=== PATIENT | male | born 1940 | race Caucasian/White ===

== ENCOUNTER 2022-06-10 08:27 | Emergency (ER) | payer MEDICARE, SELFPAY ==
[2022-06-10 08:31] VITALS: BP 146/89; PULSE 55; RESP 20; TEMP 36.3; O2SAT 99; BMI 26.9
--- NOTE | 2022-06-10 12:24 | ED.GENADULT ---
HPI - General Adult General Date Seen: 06/10/22 Chief complaint: Neck Injury/Pain Stated complaint: Pinched nerve left side neck Time Seen by Provider: 06/10/22 08:34 Source: patient and family History of Present Illness HPI narrative: Patient is an 82-year-old male recently moved here from [facility] who presents for evaluation of some pain in his left neck and trapezius area. He says this started about a month ago and initially was mild although it has become more severe over the past few days to week or so. He denies any previous injury. He does not have pain that radiates into the arm, does not have any complaints of numbness or weakness in the arm. He denies any symptoms of fevers, unusual weight loss, night sweats etcetera. He says that he saw somebody in [place] about a week ago when the pain started to get worse and was prescribed meloxicam as well as cycle than aspirin. He has been taking the meloxicam once a day and the cycle benazepril in 3 times a day but he says they do not help. He says if he sits still he does not have any pain at all but when he turns his head or tries to tilt his head to the left, he has a very sharp pain which he now rates as severe. It is largely localized to a focal area in the trapezius. It is not keeping him up at night. He does say that he has been nervous about driving because he is worried about having to turn his head quickly. He says next week he is supposed to drive 60 miles to [address] [place] [facility] and he just does not think he is going to be able to do it because of this pain. He is planning to switch his care to [place], and would be interested in setting up an appointment with someone in primary care. Related Data Home Medications Medication Instructions Recorded Confirmed cyclobenzaprine 5 mg tablet 5 mg PO TID PRN 06/10/22 06/10/22 meloxicam 7.5 mg tablet 7.5 mg PO DAILY 06/10/22 06/10/22 Previous Rx's Medication Instructions Recorded prednisone 20 mg tablet 20 mg PO DAILY #18 tabs 06/10/22 Allergies Allergy/AdvReac Type Severity Reaction Status Date / Time No Known Drug Allergies Allergy Verified 06/10/22 08:37 Review of Systems Status of ROS: Reports: 10 or more systems reviewed and unremarkable except as noted in History and below [facility] Social History Smoking Status: Never smoker Do you use any of these nicotine containing products: None Second hand tobacco smoke exposure: No How often do you have a drink containing alcohol: 4 or more times a week How many standard drinks containing alcohol do you have on a typical day: 1 or 2 How often do you have six or more drinks on one occasion: Never AUDIT-C Alcohol total score: 4 Non-prescribed substance use: denies use Exam Narrative: Exam Narrative: Vital signs as noted above. In general, an alert, well-appearing patient. Is comfortable. Head: Normocephalic, atraumatic. Eyes: Pupils are equal reactive. Extraocular movements are full. Conjunctivae are normal. ENT: Mucous membranes are moist. Throat is normal. Neck: No adenopathy or anterior tenderness. He has diffuse tenderness over the midline from C3 down to C7. He has tenderness over the paracervical muscles on the left, and has tenderness throughout the trapezius muscle on the left. I do not really feel a focal area of spasm. He has limited rotatory motion to the right and the left secondary to pain. Spurling's is positive, but not for radiculopathy, only for reproduced pain in the trapezius area. Heart: Regular rate and rhythm. No murmur or rub. Lungs: Clear bilaterally. No increased work of breathing, crackles or wheezes. Extremities: Well perfused. No upper extremity edema. Pulses intact. Neurologic: Patient is alert and oriented to person and place. Speech is fluent. Face is symmetric. Moves all extremities equally. Strength is 5 5 in bilateral upper extremities. Affect: Normal. Skin: Warm and dry. Well perfused. Const: Vital Signs, click to edit/add: Vital Signs - 24 hr 06/10/22 08:31 Temperature 97.4 F L Pulse Rate [Left P ulse Oximeter] 55 L Respiratory Rate 20 Blood Pressure [Le ft Upper Arm] 146/89 H Pulse Oximetry 99 Oxygen Delivery Me thod Room Air Documenting provider has reviewed patient's vital signs: yes Course Course Hospital Course: Discussed with patient that symptoms may be muscular, could be related to disc herniation or other compressive force on an exiting nerve root. The duration of symptoms I do think this is a possibility, however in the absence of any red flags or abnormal neurologic exam, I do not think imaging is needed today. I have suggested that we try mount a prednisone taper. We discussed using a stronger pain medication but he is comfortable avoiding that for now. I would like him to continue on the meloxicam. We discussed that this combination with prednisone can sometimes cause stomach upset and he should watch for that. He says he has never had problems along those lines in the past. We set up an appointment with primary care for him. Imaging can be arranged at that time if indicated. If he has acute worsening return to the emergency department at any time. Vital Signs Vital signs: Initial Vital Signs Temperature 97.4 F L 06/10/22 08:31 Temperature Source Temporal Artery Scan 06/10/22 08:31 Pulse Rate 55 L 06/10/22 08:31 Respiratory Rate 20 06/10/22 08:31 Blood Pressure 146/89 H 06/10/22 08:31 Blood Pressure Mean 108 06/10/22 08:31 Blood Pressure Position Sitting 06/10/22 08:31 Pulse Oximetry 99 06/10/22 08:31 Oxygen Delivery Method 06/10/22 08:31 Vital Signs Temperature 97.4 F L 06/10/22 08:31 Pulse Rate 55 L 06/10/22 08:31 Respiratory Rate 20 06/10/22 08:31 Blood Pressure 146/89 H 06/10/22 08:31 Pulse Oximetry 99 06/10/22 08:31 Oxygen Delivery Method 06/10/22 08:31 Temperature 97.4 F L 06/10/22 08:31 Pulse Rate 55 L 06/10/22 08:31 Respiratory Rate 20 06/10/22 08:31 Blood Pressure 146/89 H 06/10/22 08:31 Pulse Oximetry 99 06/10/22 08:31 Oxygen Delivery Method 06/10/22 08:31 Discharge Plan Discharge Clinical Impression: Left torticollis Patient Disposition: Home, Self-Care Condition: Stable Instructions: Spasmodic Torticollis (ED) Additional Instructions: Follow up appointment is scheduled with Dr. Manning on 06/16 with a 2:15pm arrival time. Please bring your insurance cards and photo ID. If you have any questions or need to reschedule, please call [phone]. [address] [address] Until then, continue current medications. Consider imaging the form of MRI to rule out disc herniation or other nerve compression is etiology for your symptoms. If you develop acute worsening such as weakness or numbness in your left arm, severe headache, or other neurologic changes, return to the ER for more urgent evaluation. Prednisone as prescribed Prescriptions: New prednisone 20 mg tablet 20 mg PO DAILY Qty: 18 0RF Rx Instructions: Take 3 tabs daily for 3 days, then 2 tabs daily for 3 days, then 1 tab daily for 3 days No Action meloxicam 7.5 mg tablet 7.5 mg PO DAILY cyclobenzaprine 5 mg tablet 5 mg PO TID PRN Stand Alone Forms: [employer] Info Instructions
== END 2022-06-10 10:13 | disposition home or self-care (01) ==
LOC: ED 09:25
PROVIDERS: Emergency Provider Emergency Medicine
DX: M43.6 Torticollis (principal)
CPT/HCPCS: 99282; 99284

== ENCOUNTER 2022-08-19 13:45 | Outpatient (RCR) | payer MEDICARE, SELFPAY ==
--- NOTE | 2022-06-22 10:21 | PT.OPEX ---
PT [place] Outpatient Eval PT [facility] Outpatient Eval Start: 06/21/22 17:40 Freq: Status: Active Protocol: Document 06/21/22 17:41 EVA (Rec: 06/21/22 17:42 EVA [id number]) E-signed By Waldemar Palacios DPT, MS Physical Therapy Outpatient Evaluation Insurance Information Recert Due Date 09/19/22 Insurance Name Medicare B,Blue Cross/Blue Shield Medical Diagnosis Other muscle spasm; Cervical paraspinal muscle spasm Treating Diagnosis B CS pain, decreased B CS flexibility and ROM, CS hypomobility, CS hypertonicity with TPs, and deep CS flex and periscap weakness. Subjective Subjective Pt is an 82 y.o. male who presents to PT with c/o acute onsets of B (L>R) CS pain of insidious origin in late April 2022. Describes sxs as debilitating sharp and aching pain his L CS musculature extending laterally to the proximal shoulder. 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 Believes significant time on his laptop also contributed to sxs. Denies previous episodes of neck pain with gradual increase in stiffness over the past decade. Driving has been very difficult due to limited CS rot and will need to improve before his upcoming position. Denies significant PMH. AGGR factors: looking down, turning head, driving, sleeping, extended computer use. ALLEV factors: warm shower, advil. Pain Comments -02/23 Current Work Status Production Supervisor Occupation Temp [employer] for non-profit Precautions Therapy Limitations/Systems Review Not Limited Objective Functional Test Performed & Score NDI: 75% Assessment Assessment/Impression B (R>L) CS musculature is very tight with hypertonicity with TPs with decreased flexibility and ROM. Lower CS hypomobility limiting CS rot AROM. Emphasized importance of AROM, gradually increasing flexibility. He responded very well to MT, stretching and strengthening exercises with decreased CS pain and improved AROM following today?s session. He will benefit from continued skilled therapy to address these limitations. Primary Functional Limitations Looking down, turning head, driving, sleeping, extended computer use. Plan of Care Rehabilitation Potential Excellent Physical Therapy Goals Short-term goals to be completed in 4 weeks: 1. Pt will display >50% improvement in I sitting posture for >1 consecutive PT visit 2. Pt will report improved quality of sleep waking <2x per night due to neck pain for >2 consecutive nights. Long-term goals to be completed in 10 weeks: 1. Pt will be independent and compliant with HEP 2. Pt will display improved B low and mid trap strength >4/5 to put dishes away in overhead cabinets 3. Pt will be able to tolerate sitting >30 minutes with pain levels <2/10 to improve tolerance to driving. 4. Pt will display improved neck rotation bilateral to WFL to look over shoulder to check blind spots while driving. Coordination/Communication With Referral Source Treatment Plan/Direct Interventions Joint Mobilization,Manual Therapy,Therapeutic Exercises Frequency/Duration 1-2x per week for least 6-10 visits, decreasing visit frequency as able. Patient Will Be Discharged From Therapy Completion of LTG(s),Skills Plateau,Independent w/HEP, Independently Progressing Evaluation Billing Untimed Code Treatment Minutes 25 Complexity Moderate Certification Information Initial Certification Date 06/21/22 Ending Certification Date 09/19/22 Provider Signature Shows Agreement With POC & Medical Necessity Physician Signature & Date Requested Please Sign/Date Here Physician Comment/Change : Physician NPI Number #
== END 2023-02-02 23:59 | disposition home or self-care (01) ==
PROVIDERS: Visit Provider Family Medicine
DX: M62.838 Other muscle spasm (principal); Z51.89 Encounter for other specified aftercare
CPT/HCPCS: 97110; 97140; 97162

== ENCOUNTER 2023-03-31 11:07 | Emergency (ER) | payer MEDICARE, SELFPAY ==
[2023-03-31 11:21] VITALS: BP 128/75; PULSE 55; RESP 16; TEMP 36.1; O2SAT 98; BMI 26.9
--- NOTE | 2023-03-31 12:26 | ED.GENADULT ---
HPI - General Adult General Chief complaint: Neck Injury/Pain Stated complaint: Tingling in neck/R shoulder Time Seen by Provider: 03/31/23 12:17 History of Present Illness HPI narrative: Patient reports tingling sensation from his right neck down to right shoulder. Patient first noted this several days ago and reports that it comes and goes. Does also bring up post infection neurological pain from shingles in right face. 82-year-old man presenting to the emergency department with concern of tingling in his left neck/shoulder area that seems to be coming and going somewhat over the last few days. There has been no trauma. it is not pain so much. Is not having any weakness. Has not been noting any rash. 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 Related Data Home Medications Medication Instructions Recorded Confirmed tamsulosin 0.4 mg capsule applicator PO 06/16/22 01/24/23 prednisolone acetate 1 % eye 1 drp ophthalmic (eye) 3XD 10/10/22 01/24/23 drops,suspension Previous Rx's Medication Instructions Recorded fluorouracil 5 % topical cream 1 applic topical .ud #40 grams 01/24/23 atenolol 25 mg tablet 25 mg PO QDAY #90 tabs 03/27/23 atorvastatin 40 mg tablet 40 mg PO QDAY #90 tabs 03/27/23 lisinopril 10 mg tablet 10 mg PO QDAY #90 tabs 03/27/23 omeprazole 20 mg capsule,delayed 20 mg PO QDAY #90 caps 03/27/23 release valacyclovir 1 gram tablet 1,000 mg PO TID 7 days #21 tabs 03/31/23 (Valtrex) Allergies Allergy/AdvReac Type Severity Reaction Status Date / Time No Known Drug Allergies Allergy Verified 11/25/22 14:37 Review of Systems Status of ROS: Reports: 6 or more systems reviewed and unremarkable except as noted in History and below [facility] Medical History Actinic keratosis ?L57.0 - Actinic keratosis (ICD-10) History of skin cancer ?Z85.828 - Personal history of other malignant neoplasm of skin (ICD-10) History of colon polyps ?Z86.010 - Personal history of colonic polyps (ICD-10) CVA (cerebral vascular accident) (2010) ?I63.9 - Cerebral infarction, unspecified (ICD-10) Surgical History History of esophagogastroduodenoscopy (EGD) ?Z98.890 - Other specified postprocedural states (ICD-10) History of dilation of urethra (10/12/15) ?Z98.890 - Other specified postprocedural states (ICD-10) History of phacoemulsification of cataract of both eyes with intraocular lens implantation (2006) ?Z98.41 - Cataract extraction status, right eye (ICD-10) ?Z98.42 - Cataract extraction status, left eye (ICD-10) ?Z96.1 - Presence of intraocular lens (ICD-10) Family History Father Esophageal cancer, Onset Age: 57 Mother Colon cancer, Onset Age: 54 Sister Myocardial infarction Kidney disease Bladder cancer COPD (chronic obstructive pulmonary disease) Social History Smoking Status: Never smoker Do you use any of these nicotine containing products: None Second hand tobacco smoke exposure: No How often do you have a drink containing alcohol: 4 or more times a week How many standard drinks containing alcohol do you have on a typical day: 1 or 2 How often do you have six or more drinks on one occasion: Never AUDIT-C Alcohol total score: 4 Non-prescribed substance use: denies use Little interest or pleasure in doing things: not at all Feeling down, depressed, or hopeless: not at all service: No Exam Narrative: Exam Narrative: Pleasant. NAD. Well-perfused peripherally. Neck with good range of motion. Nontender. Good strength in the upper extremities. No midline neck or back pain. Spurling's is negative. I do not appreciate swelling redness or any blistering occurring in the area. No muscular abnormality. Has good range of motion at his shoulders without pain. Const: Vital Signs, click to edit/add: Vital Signs - 24 hr 03/31/23 11:21 Temperature 97.0 F L Pulse Rate [Pulse Oximeter] 55 L Respiratory Rate 16 Blood Pressure [Ri ght Upper Arm] 128/75 Pulse Oximetry 98 Oxygen Delivery Me thod Room Air Documenting provider has reviewed patient's vital signs: yes Course Vital Signs Vital signs: Initial Vital Signs Temperature 97.0 F L 03/31/23 11:21 Temperature Source Temporal Artery Scan 03/31/23 11:21 Pulse Rate 55 L 03/31/23 11:21 Respiratory Rate 16 03/31/23 11:21 Blood Pressure 128/75 03/31/23 11:21 Blood Pressure Mean 92 03/31/23 11:21 Pulse Oximetry 98 03/31/23 11:21 Oxygen Delivery Method Room Air 03/31/23 11:21 Vital Signs Temperature 97.0 F L 03/31/23 11:21 Pulse Rate 55 L 03/31/23 11:21 Respiratory Rate 16 03/31/23 11:21 Blood Pressure 128/75 03/31/23 11:21 Pulse Oximetry 98 03/31/23 11:21 Oxygen Delivery Method Room Air 03/31/23 11:21 Temperature 97.0 F L 03/31/23 11:21 Pulse Rate 55 L 03/31/23 11:21 Respiratory Rate 16 03/31/23 11:21 Blood Pressure 128/75 03/31/23 11:21 Pulse Oximetry 98 03/31/23 11:21 Oxygen Delivery Method Room Air 03/31/23 11:21 Medical Decision Making MDM Narrative Medical decision making narrative: I do not see anything unusual at this point. May represent some underlying muscle discomfort/imbalance. He is not really describing fasciculations. Does not seem to have any joint issue. I also would have concerns about an evolving zoster outbreak. I think it would be a good idea to be cautious here. I do not think this represents any ischemic event in the spine or brain. See patient discharge plan Discharge Plan Discharge Clinical Impression: Tingling of skin Patient Disposition: Home, Self-Care Condition: Stable Additional Instructions: I would actually, as I said, have more concerned that this tingling might represent a recurrence of your shingles. You may wait a day but if this tingling is still present tomorrow, begin the Valcyclovir that I am prescribing. If you subsequently do have blisters or rash erupting, be re-evaluated to see whether there are any other treatments would be indicated at that time. Of course also return to the emergency department if you have new onset weakness, severe headache, loss of vision or sensation. Prescriptions: New valacyclovir [Valtrex] 1 gram tablet 1,000 mg PO TID 7 Days Qty: 21 0RF No Action tamsulosin 0.4 mg capsule PO prednisolone acetate 1 % drops,suspension 1 drp ophthalmic (eye) 3XD fluorouracil 5 % cream 1 applic topical .ud Qty: 40 0RF Rx Instructions: Apply topically to affected area one time every week. omeprazole 20 mg capsule,delayed release(DR/EC) 20 mg PO QDAY Qty: 90 2RF atenolol 25 mg tablet 25 mg PO QDAY Qty: 90 2RF atorvastatin 40 mg tablet 40 mg PO QDAY Qty: 90 2RF lisinopril 10 mg tablet 10 mg PO QDAY Qty: 90 2RF Patient Comments: TAKE ONE TABLET BY MOUTH DAILY Follow Up/Referrals: Jemal Early MD [Primary Care Provider] - Stand Alone Forms: [employer] Info Instructions
== END 2023-03-31 13:09 | disposition home or self-care (01) ==
LOC: ED 13:00
PROVIDERS: Emergency Provider Family Medicine; PCP Family Medicine
DX: R20.2 Paresthesia of skin (principal)
CPT/HCPCS: 99283; 99284

== ENCOUNTER 2024-04-02 12:23 | Outpatient (CLI) | payer MEDICARE, BC, SELFPAY ==
--- OUTSIDE RECORDS SUMMARY | 2024-04-02 12:28 | XMS_ITS | Encounter Summary ---
Author Organization [facility] Address [address] [place] [address] Care Team Providers Care Scouring Train Operator Name Role Phone Celsa Mitchell D.O., M.S. Primary Care Provide r Encounter Details Date Type Department Care Team (Late st Contact Info) Description 03/04/2024 Orders Only Department of Orthopedic Surgery in [address] [phone] Kristyn Bailey, DFreddyP.MFreddy [address] [place] [phone] Mass Soft Tissue (Primary Dx) Social History Tobacco Use Types Packs/Day Years Used Date Smoking Tobacco: Never Passive Smoke Exposure: Past Smokeless Tobacco: Never Alcohol Use Standard Drinks/Week Comments Yes 1 (1 standard drink = 0.6 oz pur e alcohol) daily Humiliation, Afraid, Rape, and Kick questionnair e Answer Date Recorded Fear of Current or Ex-Partner No Emotionally Abused No 01/29/2019 Physically Abused No 01/29/2019 Sexually Abused No 01/29/2019 Social Connection and Isolation Panel [NHANES] A nswer Date Recorded Frequency of Communication with Friends and Fami ly Not on file 03/10/2020 How often do you get togethe r with friends or relatives? Three times a week 03/10/2020 Attends Je[employer] Witness Services Not on file 03/10 Active Member of Clubs or Organizations Not on f ile 03/10/2020 Attends Club or Organization Meetings Not on jenifer e 03/10/2020 Marital Status Not on file 03/10/2020 AUDIT-C Answer Date Recorded Frequency of Alcohol Consumption 4 or more times a week 01/29/2019 Average Number of Drinks 1 or 2 019 Frequency of Binge Drinking Never 01/14 Overall Financial Resource Strain (CARDIA) Answe r Date Recorded Difficulty of Paying Living Expenses Not hard at all 01/29/2019 PHQ-2 Answer Date Recorded PHQ-2 Score 0 [facility] - Occupational Stress Questionnaire Answer Date Recorded Feeling of Stress Only a little 01/29/2019 Exercise Vital Sign Answer Date Recorde d On average, how many days pe r week do you engage in moderate to strenuous exercise (like a brisk walk)? 4 days Minutes of Exercise per Session Not on file 03/10/2020 Hunger Vital Sign Answer Date Recorded Worried About Running Out of Food in the Last Ye ar Never true 01/29/2019 Ran Out of Food in the Last Year Never true 01/29/2019 PRAPARE - Transportation Answer Date Re corded Lack of Transportation (Medical) No 01/29/2019 Lack of Transportation (Non-Medical) No 01/29/2019 Depression Answer Date Recor ded PHQ-9 Total Score (max 27) 0 03/25 Nutrition Answer Date Recorded Nutrition: EVOO Fat Source Unknown 03/11 Nutrition: Servings of Fruits/Vegetables per Day Not on file 03/11/2023 Dental Answer Date Recorded Dental: Regular Dentist Unknown 03/11/20 23 Education Answer Date Recorded What is the highest level of school you have completed or the highest degree you have received? Master's degree (e.g., MA, MS, Bianca, MEd, DIET AIDE, STEFANI) 01/28/2019 Sex and Gender Information Value Date Recorded Sex Assigned at Male 09/05/2017 10:23 AM DANCE CHOREOGRAPHER Gender Identity Male 09/05/2017 10:23 AM DANCE CHOREOGRAPHER Sexual Orientation Straight 09/05/2017 10 :23 AM DANCE CHOREOGRAPHER documented as of this encounter Plan of Treatment Upcoming Encounters Date Type Department Care Team (Late st Contact Info) Description 07/01/2024 11:15 AM DANCE CHOREOGRAPHER Office Visit Department of Orthopedic Surgery in [address] [phone] Kristyn Bailey D.P.M. [address] [place] [phone] Discharge Disposition: Home or Self Care Scheduled Orders Name Type Priority Associated Diagnoses Orde r Schedule Cytology Fine Needle Aspiration (including core biopsies) Pathology and Cytology Routine Mass Soft Tissue Expected: 03/13/2024, Expires: 06/13/2025 documented as of this encounter Goals Goal Patient Goal Type Associated Problems Recent Progress Patient-Stated? Author Weight (lb) > X Weight No Elaine Ball, R.N. Note: Patient states he would like to lose 20 lbs. He does go to gym 3 x week for 60 minutes. documented as of this encounter Visit Diagnoses Diagnosis Mass Soft Tissue- Primary documented in this encounter Additional Health Concerns Assessment Noted Time PHQ-9 Depression Total Score: 0 03/25/20 21 12:59 PM CDT documented as of this encounter Care Teams Scouring Train Operator Relationship Specialty Start Date End Date Celsa Mitchell D.O., M.S. [address] [place] [phone] PCP - General 05/23/22 documented as of this encounter
--- OUTSIDE RECORDS SUMMARY | 2024-04-02 12:28 | XMS_ITS | Encounter Summary ---
Author Organization [facility] Address [address] [place] [address] Care Team Providers Care Pencil Inspector Name Role Phone Celsa Mitchell D.O., M.S. Primary Care Provide r Encounter Details Date Type Department Care Team (Late st Contact Info) Description 03/13/2024 Orders Only Department of Orthopedic Surgery in [place], [place] [address] [place] [phone] Kristyn Bailey, DFreddyP.MFreddy [address] [place] [phone] Social History Tobacco Use Types Packs/Day Years [...] relatives? Three times a week 03/10/2020 Attends [employer] Not on file 03/10 Active Member [...] Answer Date Recorded PHQ-2 Score 0 05/12/2022 [facility] - Occupational Stress Questionnaire Answer Date [...] Master's degree (e.g., MA, MS, Bianca, MEd, CORPORATE SAFETY MANAGER, STEFANI) 01/28/2019 Sex and Gender Information Value Date Recorded Sex Assigned at Male 09/05/2017 10:23 AM COMPETENCY EVALUATED NURSE AIDE Gender Identity Male 09/05/2017 10:23 AM COMPETENCY EVALUATED NURSE AIDE Sexual Orientation Straight 09/05/2017 10 :23 AM COMPETENCY EVALUATED NURSE AIDE documented as of this encounter Plan of Treatment Upcoming Encounters Date Type Department Care Team (Late st Contact Info) Description 07/01/2024 11:15 AM COMPETENCY EVALUATED NURSE AIDE Office Visit Department of Orthopedic Surgery in [address] [phone] Kristyn Bailey D.P.M. [address] [place] [phone] Discharge Disposition: Home or Self Care documented as of this encounter Goals Goal Patient Goal Type Associated Problems Recent Progress Patient-Stated? Author Weight (lb) > X Weight No Elaine Ball R.N. Note: Patient states he would like to lose 20 lbs. He does go to gym 3 x week for 60 minutes. documented as of this encounter Visit Diagnoses Not on filedocumented in this encounter Additional Health Concerns Assessment Noted Time PHQ-9 Depression Total Score: 0 03/25/20 21 12:59 PM CDT documented as of this encounter Care Teams Pencil Inspector Relationship Specialty Start Date End Date Celsa Mitchell D.O., M.S. [address] [place] [phone] PCP - General 05/23/22 documented as of this encounter
--- OUTSIDE RECORDS SUMMARY | 2024-04-02 12:28 | XMS_ITS | Encounter Summary ---
Author Organization [facility] Address [address] [place] [address] Care Team Providers Care Iron Carrier Name Role Phone Celsa Mitchell D.O. M.S. Primary Care Provide r Reason for Referral * Outpatient (Routine) - Closed Specialty Diagnoses / Procedures Referred By Contac t Referred To Contact Diagnoses Pain Foot Left Procedures DX Foot Left 3+ Views Kristyn Bailey D.P.M. [address] [place] [phone] [facility] Region Referral ID Status Reason Start Date Expiration Date Visits Re quested Visits Authorized [id number] Closed 02/12/2024 02/11/2025 1 1 Reason for Visit * Outpatient (Routine) - Closed Specialty Diagnoses / Procedures Referred By Contac t Referred To Contact Diagnoses Pain Foot Left Procedures DX Foot Left 3+ Views Kristyn Bailey D.P.M. [address] [place] [address] [facility] Region Referral ID Status Reason Start Date Expiration Date Visits Re quested Visits Authorized [id number] Closed 02/12/2024 02/11/2025 1 1 Encounter Details Date Type Department Care Team (Latest Contact Info) Description 03/01/2024 10:46 AM CDT - 03/01/2024 11:59 PM CDT Hospital Encounter Department of Radiology in [place] [address] [place] [phone] Kristyn Bailey D.P.MFreddy [address] [place] [phone] Pain Foot Left Discharge Disposition: Home or Self Care Social History Tobacco Use Types Packs/Day Years [...] relatives? Three times a week 03/10/2020 Attends [employer] Not on file 03/10 Active Member [...] Answer Date Recorded PHQ-2 Score 0 05/12/2022 [facility] [place] [facility] - Occupational Stress Questionnaire Answer Date Recorded [...] Date Recorded Dental: Regular Dentist Unknown 03/11/20 Education Answer Date Recorded What is the highest level of school you have completed or the highest degree you have received? Master's degree (e.g., MA, MS, Bianca, MEd, BAND SAWING MACHINE OPERATOR, STEFANI) 01/28/2019 Sex and Gender Information Value Date Recorded Sex Assigned at Male 09/05/2017 10:23 AM SPLITTER TENDER Gender Identity Male 09/05/2017 10:23 AM SPLITTER TENDER Sexual Orientation Straight 09/05/2017 10 :23 AM SPLITTER TENDER documented as of this encounter Medications at Time of Discharge Medication Sig Dispensed Refills Start Date End Date aspirin 81 mg chewable tablet Chew 81 mg daily. atenoloL (TENORMIN) 25 mg tabletIndications:Hyper tension And Chronic Kidney Disease Stage 3 Take 1 tablet (25 mg total) by mouth daily. 90 tablet 3 02/23/2023 atorvastatin (LIPITOR) 40 mg tabletIndications:Hyper lipidemia Take 1 tablet (40 mg total) by mouth daily. 90 tablet 3 02/23/2023 fluorouraciL (EFUDEX) 5 % creamIndications:Kerato sis Actinic Apply to actinic keratoses on forehead and scalp twice a day for 2-3 weeks as tolerated. 40 g 1 03/23/2021 lisinopriL (PRINIVIL,ZESTRIL) 10 mg tabletIndications:Hyper tension And Chronic Kidney Disease Stage 3 Take 1 tablet (10 mg total) by mouth daily. 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 180 capsule 3 02/23/2023 polymyxin B-trimethoprim (Polytrim) 10,000 unit- 1 mg/mL ophthalmic solution Administer 1 drop into the right eye 4 (four) times a day. 02/08/2024 prednisoLONE acetate (PRED FORTE) 1 % ophthalmic suspension Administer 1 drop into both eyes 2 (two) times a day. 12/16/2022 tamsulosin (FLOMAX) 0.4 mg 24 hr capsuleIndications:Cong gn Prostatic Hyperplasia Without Obstruction Take 1 capsule (0.4 mg total) by mouth daily. 90 capsule 3 02/23/2023 vitamins A,C,S-edco-zjwctu (for_PRESERVISION AREDS) 7,160 Units-113 mg-100 Units per tablet Take 1 tablet by mouth daily. documented as of this encounter Plan of Treatment Upcoming Encounters Date Type Department Care Team (Late st Contact Info) Description 07/01/2024 11:15 AM SPLITTER TENDER Office Visit Department of Orthopedic Surgery in [address] [phone] Kristyn Bailey D.P.M. [address] [place] [phone] Discharge Disposition: Home or Self Care documented as of this encounter Goals Goal Patient Goal Type Associated Problems Recent Progress Patient-Stated? Author Weight (lb) > X Weight No Elaine Ball, RFreddyN. Note: Patient states he would like to lose 20 lbs. He does go to gym 3 x week for 60 minutes. documented as of this encounter Procedures Procedure Name Priority Date/Time Associated Diagnosis Comments DX FOOT LEFT 3+ VIEWS RAD - Routine (most inpatients and all outpatients) 03/01/2024 11:03 AM CDT Pain Foot Left documented in this encounter Results * DX Foot Left 3+ Views (03/01/2024 11:03 AM CDT) Anatomical Region Laterality Modality Lower Extremity, Foot, Muscu loskeletal RST LOS, Musculoskeletal ARZ LOS, Muskuloskeletal FLA LOS Left Digit al Radiography Impressions 03/01/2024 11:14 AM CDT No fracture or dislocation. 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 There are also moderate degenerative changes of the first metatarsophalangeal joint. Plantar calcaneal enthesophyte. Narrative 03/01/2024 11:14 AM CDT EXAM: DX FOOT LEFT 3+ VIEWS Procedure Note Romero Alfaro M.D. - 03/01/2024 EXAM: DX FOOT LEFT 3+ VIEWS IMPRESSION: No fracture or dislocation. Moderate degenerative change of the left firsttarsometatarsal joint with adjacent soft tissue swelling. There are alsomoderate degenerative changes of the first metatarsophalangeal joint.Plantar calcaneal enthesophyte. Kristyn Bailey D.P.M. [facility]NO[facility] IMAG[facility] PROCEDURES documented in this encounter Visit Diagnoses Diagnosis Pain Foot Left documented in this encounter Additional Health Concerns Assessment Noted Time PHQ-9 Depression Total Score: 0 03/25/20 21 12:59 PM CDT documented as of this encounter Care Teams Iron Carrier Relationship Specialty Start Date End Date Celsa Mitchell D.O., M.S. [address] [place] [phone] PCP - General 05/23/22 documented as of this encounter
--- OUTSIDE RECORDS SUMMARY | 2024-04-02 12:28 | XMS_ITS | Referral Summary ---
Author Organization [facility] Address [address] [place] [address] Care Team Providers Care Shirt Bander Name Role Phone Celsa Mitchell D.O. M.S. Primary Care Provide r Source Comments Patient records contain information from all sites at [facility]. For routine questions regarding patient records, call [phone] during business hours, M-F 8:00 AM - 5:00 PM Central Time. Record requests for emergency care only can be directed to [phone] at any time.[facility] Encounters Date Type Department Care Team Description 04/01/2024 9:15 AM CDT Office Visit Department of Orthopedic Surgery in [address] [phone] Kristyn Bailey D.P.MFreddy Onychomycosis; Pain Toe Right; Pain Toe Left Discharge Disposition: Home or Self Care 03/13/2024 Orders Only Department of Orthopedic Surgery in [place], [place] [address] [phone] Kristyn Bailey D.PFreddyMFreddy 03/13/2024 Orders Only Department of Orthopedic Surgery in [place], [place] [address] [address] Kristyn Bailey D.P.MFreddy 03/04/2024 Orders Only Department of Orthopedic Surgery in [address] [phone] Kristyn Bailey D.PMaren Mass Soft Tissue (Primary Dx) 03/01/2024 10:46 AM CDT - 03/01/2024 11:59 PM CDT Hospital Encounter Department of Radiology in [address] [address] Kristyn Bailey D.PMaren Pain Foot Left Discharge Disposition: Home or Self Care 03/01/2024 11:15 AM CDT Office Visit Department of Orthopedic Surgery in [address] [address] Kristyn Bailey D.PMaren Mass Soft Tissue (Primary Dx); Cyst Ganglion; Pain Foot Left Discharge Disposition: Home or Self Care 02/12/2024 Clinical Communication Department of Orthopedic Surgery in [address] [phone] Kristyn Bailey D.PMaren 01/23/2024 Orders Only [facility] Celsa Mitchell D.O., M.S. Hyperlipidemia; Screening Examination Diabetes Mellitus from Last 3 Months Allergies No known active allergies Medications Medication Sig Dispensed Refills Start Date End Date Status vitamins A,C,D-iyea-hjroox (for_PRESERVISION AREDS) 7,160 Units-113 mg-100 Units per tablet Take 1 tablet by mouth daily. Active aspirin 81 mg chewable tablet Chew 81 mg daily. Active fluorouraciL (EFUDEX) 5 % creamIndications:Ker atosis Actinic Apply to actinic keratoses on forehead and scalp twice a day for 2-3 weeks as tolerated. 40 g 1 03/23/2021 Active fluticasone propionate (FLONASE) 50 mcg/actuation nasal spray Administer 2 sprays into each nostril 2 (two) times a day for 14 days. 16 g 11/05/2021 Active cyclobenzaprine (FLEXERIL) 5 mg tablet Take 1 tablet (5 mg total) by mouth 3 (three) times a day as needed for muscle spasms. 90 tablet 06/02/2022 Active meloxicam (MOBIC) 7.5 mg tablet Take 1 tablet (7.5 mg total) by mouth daily. 60 tablet 06/02/2022 Active prednisoLONE acetate (PRED FORTE) 1 % ophthalmic suspension Administer 1 drop into both eyes 2 (two) times a day. 12/16/2022 Active atenoloL (TENORMIN) 25 mg tabletIndications:Hy pertension And Chronic Kidney Disease Stage 3 Take 1 tablet (25 mg total) by mouth daily. 90 tablet 3 02/23/2023 Active atorvastatin (LIPITOR) 40 mg tabletIndications:Hy perlipidemia Take 1 tablet (40 mg total) by mouth daily. 90 tablet 3 02/23/2023 Active lisinopriL (PRINIVIL,ZESTRIL) 10 mg tabletIndications:Hy pertension And Chronic Kidney Disease Stage 3 Take 1 tablet (10 mg total) by mouth daily. 90 tablet 3 02/23/2023 Active omeprazole (PriLOSEC) [address] capsuleIndications:H ernia Diaphragmatic Without Obstruction Take 1 capsule (20 mg total) by mouth 2 (two) times a day. 180 capsule 3 02/23/2023 Active tamsulosin (FLOMAX) 0.4 mg 24 hr capsuleIndications:B enign Prostatic Hyperplasia Without Obstruction Take 1 capsule (0.4 mg total) by mouth daily. 90 capsule 3 02/23/2023 Active polymyxin B-trimethoprim (Polytrim) 10,000 unit- 1 mg/mL ophthalmic solution Administer 1 drop into the right eye 4 (four) times a day. 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 Assessment & Plan (02/23/2023 3:55 PM CDT): Will hold off on treatment for now. Stenosis Carotid Artery Bilateral 02/13/2019 Benign Prostatic Hyperplasia Without Obstruction 02/01/2019 Overview (02/23/2023): Currently managed with Flomax 0.4 mg daily Consider Yearly PSA Stroke Cerebrovascular Accident Personal History 02/01/2019 Overview (02/23/2023): Left lacuna infarct found on MRI imaging August 06, 2010 On aspirin 81 mg daily Myopia Bilateral 07/03/2017 Presbyopia 07/03/2017 Intraocular Lens Implant Status Post 07/03/2017 Overview (02/23/2023): Left eye completed 03/27/2007. 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 Last EGD 2020 with recommendations for no follow up. 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 Recommended follow-up 3 years. Discussed in 2021 and patient elected to hold off on further colonoscopies. Cancer Gastrointestinal Tract Family History Hernia Diaphragmatic Without Obstruction 014 Overview (02/23/2023): Asymptomatic. Hypertensive Chronic Kidney Disease With Stage 1 Through Stage 4 Chronic Kidney Disease, Or Unspecified Chronic Kidney Disease 06/28/2011 Overview (02/23/2023): Patient's blood pressure goal less than 140/90 At goal Yearly BMP Lisinopril 10 mg daily Atenolol 25 mg daily Hyperlipidemia 06/28/2011 Overview (02/23/2023): On Lipitor 40 mg daily. Yearly Lipid Loss Hearing Sensorineural 08/05/2010 Overview (02/23/2023): Patient reports 60% hearing loss on the right side. Left ear hearing grossly intact Resolved Problems Problem Noted Date Diagnosed Date Resolved Date Discomfort Chest 02/01/2019 03/10/2020 Overview (02/01/2019): New onset complaint February 01, 2019 Stenosis Carotid Artery Right 02/01/2019 05/12/2022 Overview (03/25/2021): New finding February 01, 2019 Ultrasound completed February 07, 2019 FINDINGS: ?? RIGHT: Mild to moderate multifocal echogenic plaque ?? LEFT: Mild multifocal mixed echogenicity plaque ?? VELOCITIES (cm/sec) Right CCA *psv: 66 cm/s Right ICA psv: 207 cm/s Right ICA edv: 207 cm/s Right ECA psv: 274 cm/s Right ICA/CCA: 3.1 ?? Left CCA *psv: 77 cm/s Left ICA psv: 62 cm/s Left ICA edv: 20 cm/s Left ECA psv: 106 cm/s Left ICA/CCA: 0.8 *mid/distal (non-diseased) ?? Measurement of a carotid stenosis, if present, is based on velocity parameters that compare the residual internal carotid luminal diameter with that of the normal distal ICA in accordance with [place] Symptomatic Carotid Endarterectomy Trial (NASCET). ?? IMPRESSION: Right: Moderate, 50-69% ICA stenosis Left: Mild, 0-49%, ICA stenosis. Aspirin 81 mg daily Lipitor 40 mg daily Polyp Colon Hyperplastic 02/01/2019 Overview (02/01/2019): Hyperplastic polyps found on last colonoscopy last performed on 08/27/2018. Recommended follow-up 3 years. Will rediscuss at 3 year kari as patient will be 81 years old. 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 Patient currently uses Flomax 0.4 mg, continue medication Combined Forms Age Related Cataract Right Eye 07/03/20 16 02/01/2019 Overview (07/03/2017): Added automatically from request for surgery [id number] Reflux Esophageal 06/28/2011 02/01/2019 Immunizations Name Administration Dates Next Due HepA Adult 05/21/2008,04/17/2006 Influenza high dose QV(65 ye ars or older) (PF) 05/12/2022,06/25/2021,04/21/2020 Influenza, Unspecified 06/26/2014,05/10/2011,11/2007 PCV13 02/01/2018 PPSV23 05/21/2008 Td (Adult), adsorbed 04/17/2006 Tdap 02/01/2018 influenza trivalent high dose (HD)(PF) 9,08/24/2017 Social History Tobacco Use Types Packs/Day Years Used Date Smoking Tobacco: Never Passive Smoke Exposure: Past Smokeless Tobacco: Never Tobacco Cessation:Counseling Given: Not Answered Alcohol Use Standard Drinks/Week Comments Yes 1 [...] relatives? Three times a week 03/10/2020 Attends Sikh Services Not on file 03/10 Active Member [...] Answer Date Recorded PHQ-2 Score 0 05/12/2022 [facility] [place] of Occupat ional Health - Occupational Stress [...] Master's degree (e.g., MA, MS, Bianca, MEd, EAR PULL MACHINE OPERATOR, STEFANI) 01/28/2019 Sex and Gender Information Value Date Recorded Sex Assigned at Male 09/05/2017 10:23 AM OUTSIDE PHYSICAL DAMAGE APPRAISER Gender Identity Male 09/05/2017 10:23 AM OUTSIDE PHYSICAL DAMAGE APPRAISER Sexual Orientation Straight 09/05/2017 10 :23 AM OUTSIDE PHYSICAL DAMAGE APPRAISER Last Filed Vital Signs Vital Sign Reading Time Taken Comments Blood Pressure 132/79 02/23/2023 10:00 AM CDT Pulse 52 02/23/2023 10:00 AM CDT Temperature 35.9 ??C (96.6 ??F) 02/23/2023 9:56 AM CD T Respiratory Rate 16 11/06/2021 3:06 PM CDT Oxygen Saturation 97% 11/06/2021 3:06 PM CDT Inhaled Oxygen Concentration - - Weight 84.7 kg (186 lb 11.7 oz) 02/23/2023 9:56 AM CDT Height 174 cm (5' 8.5) 05/12/2022 9:24 AM CDT Body Mass Index 27.98 05/12/2022 9:24 AM CDT Plan of Treatment Upcoming Encounters Date Type Department Care Team (Late st Contact Info) Description 07/01/2024 11:15 AM OUTSIDE PHYSICAL DAMAGE APPRAISER Office Visit Department of Orthopedic Surgery in [address] [place] [address] Kristyn Bailey D.PFreddyM. [address] [phone] Discharge Disposition: Home or Self Care Goals Goal Patient Goal Type Associated Problems Recent Progress Patient-Stated? Author Weight (lb) > X Weight No Elaine Ball, RTawnya Note: Patient states he would like to lose 20 lbs. He does go to gym 3 x week for 60 minutes. Medical Devices Implanted Type Area Itinerant Teacher Assistant Device Identifier Shelf Expiration Date Model / Serial / Lot Ocular Lens-03/27/2007 Implanted:03/17 (Quantity not on file) Ocular Lens Eye Aspheric Uv Absorbing Iol Implanted:Qty: 1 on 08/29/2017 by Daniel Soler M.D., Ph.D. at [facility] Ocular Lens [employer] [id number] 03/16/2022 [id number] / [id number] / [id number] Procedures Procedure Name Priority Date/Time Associated Diagnosis Comments CYTOLOGY NON-INDUSTRIAL TECHNOLOGY TEACHER Routine 03/01/2024 11:4 1 AM CDT CELL COUNT AND DIFFERENTIAL, BF Routine 03/01/2024 11:41 AM CDT Cyst Ganglion DX FOOT LEFT 3+ VIEWS RAD - Routine (most inpatients and all outpatients) 03/01/2024 11:03 AM CDT Pain Foot Left LIPID PANEL, S Routine 05/11/2022 9:28 AM CDT Hyperlipidemia BASIC METABOLIC PANEL, S/P Routine 05/11/2022 9:28 AM CDT Hypertension And Chronic Kidney Disease Stage 3 (HCC) UPPER GI ENDOSCOPY 04/06/2021 7: 41 AM CDT COLONOSCOPY 08/27/2018 7:28 AM OUTSIDE PHYSICAL DAMAGE APPRAISER from Last 3 Months or Most Recently Relevant to Health Maintenance Results * Cytology Non-INDUSTRIAL TECHNOLOGY TEACHER (03/01/2024 11:41 AM CDT) 03/06/2024 11:22 AM CDT ECLR Report electronically signed by Nesha Otoole M.D. I verify that I have examined all relevant slides/materi als for the specimen(s) and rendered or confirmed the diagnosis. 03/06/2024 11:22 AM CDT ECLR Gross Description Received 1.5 cc of blood tinged fluid without fixative. QNS for cell block 03/06/2024 11:22 AM CDT ECLR Source A. NOS, foot, left, fluid 03/06/2024 11:22 AM CDT ECLR Interpretation A. NOS, foot, left, fluid (cytospin): Negative for malignancy. ??Paucicellul ar myxoid material and histiocytes, suggestive of ganglion cyst. 03/06/2024 11:22 AM CDT ECLR 03/01/2024 11:4 1 AM CDT 03/05/2024 12:50 PM CDT Kristyn Bailey D.P.M. LAB SURG PATH ORDERABLES [facility] [address] [place] [id number], [facility] ECLR [address] [place] [phone] * Cell Count and Differential, Body Fluid (03/01/2024 11:41 AM CDT) Fluid Type Synovial 03/01/2024 7:47 PM CDT [facility] Gross Appearance CloudySerous 03/01/2024 7:47 PM CDT [facility] Total Nucleated Cells 1827 /mcL 03/02/2024 5:27 AM CDT [facility] Comment: REVISED RESULTS ----REFERENCE VALUE---- Synovial: <150 Peritoneal: <500 Pleural: <500 Pericardial: <500 ----PREVIOUSLY REPORTED ---- 172, Flagged as: N/A (Reported 03/01/2024 19:47) Neutrophils 1 % 03/01/2024 10:22 PM CDT [facility] Comment: ----REFERENCE VALUE---- Synovial: <25% Peritoneal: <25% Pleural: <25% Pericardial: <25% Lymphocytes 5 Synovial: <75% % 03/01/2024 10:22 PM CDT [facility] Monocytes/Macro phages 92 Synovial: <70% % 03/01/2024 10:22 PM CDT [facility] Other Cells 2 % 03/01/2024 10:22 PM CDT [facility] Reviewed by [id number] 03/01/2024 10:27 PM CDT [facility] Fluid (Synovial Fluid, Not Otherwise Specified) 03/01/2024 11:41 AM CDT 03/01/2024 6:59 PM CDT Kristyn Bailey D.P.M. LAB BODY FLUID S AND STOOLS ORDERABLES [facility] [address] [place] [address], [facility] RDWG [facility] [place] [address] [place] [address] * DX Foot Left 3+ Views (03/01/2024 [...] metatarsophalangeal joint.Plantar calcaneal enthesophyte. Kristyn Bailey D.P.M. IMG DIAGNOSTIC IMAGING PROCEDURES * Lipid Panel (05/11/2022 9:28 AM CDT) Triglycerides 95 mg/dL 05/11/2022 11:19 AM CDT [facility] Comment: ----REFERENCE VALUE---- Normal: <150 mg/dL Borderline High: 150-199 mg/dL High: 200-499 mg/dL Very High: > or =500 mg/dL Cholesterol, Total 146 mg/dL 2021 11:19 AM CDT [facility] Comment: ----REFERENCE VALUE---- Desirable: < 200 mg/dL Borderline High: 200 - 239 mg/dL High: > or = 240 mg/dL Cholesterol, LDL, Calculated 75 mg/dL 05/11/2022 11:19 AM CDT [facility] Comment: ----REFERENCE VALUE---- Desirable: <100 mg/dL Above Desirable: 100-129 mg/dL Borderline High: 130-159 mg/dL High: 160-189 mg/dL Very High: >=190 mg/dL ----ADDITIONAL INFORMATION---- LDL cholesterol calculated using the Henson/NIH equation. Cholesterol, HDL 53 >=40 mg/dL 05/11/20 11:19 AM CDT [facility] Cholesterol, Non-HDL, Calculated 93 mg/dL 05/11/2022 11:19 AM CDT [facility] Comment: ----REFERENCE VALUE---- Desirable: <130 mg/dL Above Desirable: 130-159 mg/dL Borderline High: 160-189 mg/dL High: 190-219 mg/dL Very High: > or =220 mg/dL Fasting (8 HR or more) No 05/11/2022 10:17 AM CDT [facility] Blood (Blood, Venous) 05/11/2022 9:28 AM CDT 05/11/2022 10:17 AM CDT Hilary Zeng APRN, C.N.P., D.N.P. LAB BL OOD ADD-ON [facility] [address] [place] [address], [facility] [address] [place] [address] * Basic Metabolic Panel (05/11/2022 9:28 AM CDT) Potassium, P 4.4 3.6 - 5.2 mmol/L 05/11/2022 11:19 AM CDT [facility] Sodium, P 143 135 - 145 mmol/L 05/11/2022 11:19 AM CDT [facility] Chloride, P 106 98 - 107 mmol/L 05/11/2022 11:19 AM CDT [facility] Bicarbonate, P 27 22 - 29 mmol/L 05/11/2022 11:19 AM CDT [facility] Anion Gap, P 10 7 - 15 05/11/2022 11:19 AM CDT [facility] BUN (Blood Urea Nitrogen), P 19 8 - 24 mg/dL 05/11/2022 11:19 AM CDT [facility] Creatinine 1.19 0.74 - 1.35 mg/dL 05/11/2022 11:19 AM CDT [facility] Estimated GFR (eGFR) 61 >=60 mL/min/BSA 05/11/2022 11:19 AM CDT [facility] Comment: Estimated GFR calculated using the 2020 CKD_EPI creatinine equation. Calcium, Total, P 9.1 8.8 - 10.2 mg/dL 05/11/2022 11:19 AM CDT [facility] Glucose, P 86 70 - 140 mg/dL 05/11/2022 11:19 AM CDT [facility] Blood (Blood, Venous) 05/11/2022 9:28 AM CDT 05/11/2022 10:17 AM CDT Hilary Zeng APRN, C.N.P., D.N.P. LAB BL OOD ADD-ON [facility] [address] [place] [address], [facility] [address] [place] [address] * UPPER GI ENDOSCOPY (04/06/2021 7:41 AM CDT) Narrative Procedure Note Tru Nieto M.D. - 04/06/2021 7:41 AM CDT [facility] Patient Name: Elver Novak Procedure Date: 04/06/2021 7:41 AM Date of : 1940 Age: 80 Gender: Male Procedure: Upper GI endoscopy Providers: Tru Nieto MD, Hilary Zeng (OrderingProvider) Referring Provider: Hilary Zeng Pre-op Diagnoses: Follow-up of Win's esophagus Post-op Diagnoses: - Normal examined duodenum. - Normal stomach. 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 Biopsied. Nodule included of cardia. - 2 cm hiatal hernia. - Tortuous esophagus. - The examination was otherwise normal. Recommendation: - Await pathology results. - Repeat upper endoscopy is not recommended. Findings: The examined duodenum was normal. The stomach was normal. The esophagus and gastroesophageal junction were examined with white light and narrow band imaging (NBI) from a forward view andretroflexed position. There were esophageal mucosal changes secondary toestablished short-segment Win's disease. These changes involved the mucosa at the upper extent of the gastric folds (38 cm from the incisors) extending to the Z-line (37 cm from the incisors). Two tongues of salmon-colored mucosa were present. The maximum longitudinal extentof these esophageal mucosal changes was 1 cm in length. Mucosa wasbiopsied with a cold forceps for histology in a targeted manner at intervalsof 1 cm at 37 cm from the incisors. One specimen bottle was sent to pathology. Biopsy of cardia included. A 2 cm hiatal hernia was present. The examined esophagus was mildly tortuous. The exam was otherwise without abnormality. Medicines: Monitored Anesthesia Care Estimated Blood Loss: Estimated blood loss: none. Complications: No immediate complications. Procedure Details: The patient was seen, evaluated, and history reviewed. Airway and heart and lung exams were performed and were satisfactory for plannedsedation care. The risks, benefits and alternatives for the procedure and sedation were discussed andinformed consent was obtained. A procedural pause was conducted in the presence of assisting personnelto verify the correct patient identity and procedureto be performed. Throughout the procedure, the patient's blood pressure, pulse, and oxygen saturations were monitored continuously. The Endoscope was introduced under direct vision through the mouth, and advanced to the secondpart of duodenum. The upper GI endoscopy wasaccomplished without difficulty. The patient tolerated the procedure well. Sedation: TONY Nieto MD 04/06/2021 8:22:28 AM This report has been signed electronically. Number of Addenda: 0 Note Initiated On: 04/06/2021 7:41 AM Hilary Ashanti Karri JI, C.N.P., D.N.P. GI PRO CEDURE ORDERABLES * COLONOSCOPY (08/27/2018 7:28 AM OUTSIDE PHYSICAL DAMAGE APPRAISER) Narrative Procedure Note Darryl Tesfaye M.D. - 08/27/2018 7:28 AM CST [facility] Patient Name: Elver Novak Procedure Date: 08/27/2018 7:28 AM Date of : 1940 Age: 78 Gender: Male Procedure: Colonoscopy Providers: Darryl Tesfaye MD, Darryl Tesfaye MD (OrderingProvider) Referring Provider: Darryl Tesfaye MD Pre-op Diagnoses: High risk colon cancer surveillance: Personal history of adenoma (10 mm or greater in size),High risk colon cancer surveillance: Personal historyof multiple (3 or more) adenomas Post-op Diagnoses: - Five 2 to 4 mm polyps in the rectum, in the distal sigmoid colon,in the descending colon and in the mid ascending colon, removed with acold biopsy forceps. Resected and retrieved. - The examined portion of the ileum was normal. - The distal rectum and anal verge are normal on retroflexion view. Recommendation: - Patient has a contact number available for emergencies. The signsand symptoms of potential delayed complications were discussed with the patient. Return to normal activities tomorrow. Written discharge instructions were provided to the patient. - Await pathology results. - Repeat colonoscopy date to be determined after pending pathology results are reviewed. - Return to referring physician as previously scheduled. - Resume previous diet. Findings: The perianal examination was normal. Five sessile polyps were found in the rectum, distal sigmoid colon, descending colon and mid ascending colon. The polyps were 2 to 4 mmin size. These polyps were removed with a cold biopsy forceps. Resection and retrieval were complete. The terminal ileum appeared normal. The retroflexed view of the distal rectum and anal verge was normaland showed no anal or rectal abnormalities. Medicines: Midazolam 4.5 mg IV, Fentanyl 100 micrograms IV Complications: No immediate complications. Procedure Details: The patient was seen, evaluated, and history reviewed. Airway and heart and lung exams were performed and were satisfactory for plannedsedation care. The risks, benefits and alternatives for the procedure and sedation were discussed andinformed consent was obtained. A procedural pause was conducted in the presence of assisting personnelto verify the correct patient identity and procedureto be performed. Throughout the procedure, the patient's blood pressure, pulse, and oxygen saturations were monitored continuously. The Colonoscope was introduced under directvision through the anus and advanced to the terminalileum. The colonoscopy was performed without difficulty. The patient tolerated the procedure well. The quality of the bowel preparation was excellent. Sedation: Moderate (conscious) sedation was administered by the endoscopy nurse and supervised by the endoscopist. The following parameters were monitored: oxygen saturation, heart rate, blood pressure, respiratory rate, EKG, adequacy of pulmonary ventilation, and response to care. Total physician intraservice time was 32 minutes. Darryl Tesfaye MD 08/27/2018 9:28:18 AM This report has been signed electronically. Number of Addenda: 0 Note Initiated On: 08/27/2018 7:28 AM Darryl Tesfaye M.D. GI PROCEDURE ORDERAB LES from Last 3 Months or Most Recently Relevant to Health Maintenance Advance Directives For more information, please contact: [phone] * Full Code (Latest Code Status on File) Date Activated Date Inactivated Comments 04/06/2021 8:17 AM 04/06/2021 11:24 AM Question Answer Comments Full Code: Discussed * Full Code Date Activated Date Inactivated Comments 08/29/2017 6:13 AM 08/29/2017 10:58 AM Question Answer Comments Full Code: Discussed Care Teams Shirt Bander Relationship Specialty Start Date End Date Celsa Mitchell D.O., M.S. [address] [phone] PCP - General 05/23/22
--- OUTSIDE RECORDS SUMMARY | 2024-04-02 12:28 | XMS_ITS ---
Author Organization [facility] Address [address] [place] [address] Care Team Providers Care Paper Sorter And Counter Name Role Phone Unavailable Unavailable Unavailable Surgery Details Not on file Complications Check Surgery Details section. Procedure Estimated Blood Loss Check Surgery Details section. Procedure Findings Check Surgery Details section. Procedure Specimens Taken Check Surgery Details section.
--- OUTSIDE RECORDS SUMMARY | 2024-04-02 12:28 | XMS_ITS | Encounter Summary ---
Author Organization [facility] Address [address] [place] [address] Care Team Providers Care Thermoforming Machine Operator Name Role Phone Celsa Mitchell D.O., M.S. Primary Care Provide r Encounter Details Date Type Department Care Team (Late st Contact Info) Description 03/13/2024 Orders Only Department of Orthopedic Surgery in [place], [place] [address] [place] [phone] Kristyn Bailey, DFreddyP.MFreddy [address] [place] [phone] Social History Tobacco Use Types Packs/Day Years [...] relatives? Three times a week 03/10/2020 Attends [employer] Services Not on file 03/10 Active Member [...] Answer Date Recorded PHQ-2 Score 0 05/12/2022 [facility] Occupat [facility] - Occupational Stress Questionnaire Answer Date [...] Master's degree (e.g., MA, MS, Bianca, MEd, WIRE CUTTER, STEFANI) 01/28/2019 Sex and Gender Information Value Date Recorded Sex Assigned at Male 09/05/2017 10:23 AM PIECER UP Gender Identity Male 09/05/2017 10:23 AM PIECER UP Sexual Orientation Straight 09/05/2017 10 :23 AM PIECER UP documented as of this encounter Plan of Treatment Upcoming Encounters Date Type Department Care Team (Late st Contact Info) Description 07/01/2024 11:15 AM PIECER UP Office Visit Department of Orthopedic Surgery in [address] [phone] Kristyn Bailey D.P.M. [address] [place] [phone] Discharge Disposition: Home or Self Care documented [...] documented as of this encounter Care Teams Thermoforming Machine Operator Relationship Specialty Start Date End Date Celsa Mitchell D.O., M.S. [address] [place] [phone] PCP - General 05/23/22 documented as of this encounter
--- OUTSIDE RECORDS SUMMARY | 2024-04-02 12:28 | XMS_ITS | Clinical Summary ---
Author Organization [facility] Address [address] [place] [address] Care Team Providers Care Information Technology Internship Name Role Phone Celsa Mitchell D.O. M.S. Primary Care Provide r Source Comments Patient records contain information from all sites at [facility]. For routine questions regarding patient records, call [phone] during business hours, M-F 8:00 AM - 5:00 PM Central Time. Record requests for emergency care only can be directed to [phone] at any time.[facility] Allergies No known active allergies Medications Medication Sig Dispensed Refills Start Date End Date Status vitamins A,C,Z-grgv-jpxqyr (for_PRESERVISION AREDS) 7,160 Units-113 mg-100 Units per [...] normal distal ICA in accordance with [place] Symptomatic Carotid Endarterectomy Trial (NASCET). ?? IMPRESSION: [...] (07/03/2017): Added automatically from request for surgery [id number] Reflux Esophageal 06/28/2011 02/01/2019 Encounters Date Type Department Care Team Description 04/01/2024 9:15 AM CDT Office Visit Department of Orthopedic Surgery in [address] [phone] Kristyn Bailey D.P.MFreddy Onychomycosis; Pain Toe Right; Pain Toe Left Discharge Disposition: Home or Self Care 03/13/2024 Orders Only Department of Orthopedic Surgery in [place], [place] [address] [address] [phone] Kristyn Bailey D.PFreddyMFreddy 03/13/2024 Orders Only Department of Orthopedic Surgery in [place], [place] [address] [address] [phone] Kristyn Bailey D.PMaren 03/04/2024 Orders Only Department of Orthopedic Surgery in [address] [phone] Kristyn Bailey D.PFreddyMFreddy Mass Soft Tissue (Primary Dx) 03/01/2024 11:15 AM CDT Office Visit Department of Orthopedic Surgery in [address] [phone] Kristyn Bailey D.PFreddyMFreddy Mass Soft Tissue (Primary Dx); Cyst Ganglion; Pain Foot Left Discharge Disposition: Home or Self Care 03/01/2024 10:46 AM CDT - 03/01/2024 11:59 PM CDT Hospital Encounter Department of Radiology in [address] [phone] Kristyn Bailey D.PFreddyMFreddy Pain Foot Left Discharge Disposition: Home or Self Care 02/12/2024 Clinical Communication Department of Orthopedic Surgery in [address] [phone] Kristyn Bailey D.PFreddyMFreddy 01/23/2024 Orders Only [facility] Celsa Mitchell, Nany, M.S. Hyperlipidemia; Screening Examination Diabetes Mellitus from Last 3 Months Immunizations Name Administration Dates Next Due HepA Adult 05/21/2008,04/17/2006 Influenza high dose QV(65 ye ars or older) (PF) 05/12/2022,06/25/2021,04/21/2020 Influenza, Unspecified 06/26/2014,05/10/2011,11/2007 PCV13 02/01/2018 PPSV23 05/21/2008 Td (Adult), adsorbed 04/17/2006 Tdap 02/01/2018 influenza trivalent high dose (HD)(PF) 9,08/24/2017 Family History Medical History Relation Name Comments Esophageal cancer Father Colon cancer Mother origin with met s Heart attack Sister 1 Swetha Kidney failure Sister 1 Swetha Bladder cancer Sister 2 affecting kid meek and urethra COPD Sister 2 Nicotine dependence Sister 2 Respiratory disease Sister 2 Relation Name Status Comments Father Maternal Grandfather Maternal Grandmother Mother Paternal Grandfather Alive Paternal Grandmother Sister 1 Swetha Sister 2 Alive Social History Tobacco Use Types Packs/Day Years [...] relatives? Three times a week 03/10/2020 Attends [employer] Services Not on file 03/10 Active Member [...] Answer Date Recorded PHQ-2 Score 0 05/12/2022 [facility] of Occupat ional Health - Occupational Stress [...] Master's degree (e.g., MA, MS, Bianca, MEd, WARP KNITTER HELPER, STEFANI) 01/28/2019 Sex and Gender Information Value Date Recorded Sex Assigned at Male 09/05/2017 10:23 AM CONVEYOR LOADER Gender Identity Male 09/05/2017 10:23 AM CONVEYOR LOADER Sexual Orientation Straight 09/05/2017 10 :23 AM CONVEYOR LOADER Last Filed Vital Signs Vital Sign Reading [...] st Contact Info) Description 07/01/2024 11:15 AM CONVEYOR LOADER Office Visit Department of Orthopedic Surgery in [address] [place] [phone] Kristyn Bailey D.P.M. [address] [place] [phone] Discharge Disposition: Home or Self Care Health Maintenance Due Date Last Done Comments Visit: Medicare Annual Wellness 1940 Zoster Vaccines (1 of 2) 1989 Creatinine Level (Kidney Fun ction Test) 05/11/2023 05/11/2022, 03/23/2021, 03/31/2020, Additional history exists Fasting Glucose for Diabetes Screening 05/11/2023 05/11/2022, 03/23/2021, 03/31/2020, Additional history exists Lipid (Cholesterol) Screening 05/11/2023, 03/23/2021, 03/31/2020, Additional history exists Potassium Level 05/11/2023 05/11/2022, 09/0 01/2021, 03/31/2020, Additional history exists Sodium Level 05/11/2023 05/11/2022, 09/0 01/2021, 03/31/2020, Additional history exists Depression Screening (Annual PHQ-2) 07/17/2023 Fall Risk Screen (Annual) 07/17/2023 Office Visit for Blood Press ure Check / Re-check 02/24/2024 02/23/2023 Visit: Chronic Disease, age 18+ 02/24/2024 3 COVID-19 Vaccine (2022-2 4 season) 2024 02/08/2022, 05/17/2021, 10/08/2020, Additional history exists Gastroscopy (upper endoscopy) 04/06/2024, 02/27/2018, 02/27/2018, Additional history exists Influenza Vaccine (#1) 2024 2, 06/25/2021, 04/21/2020, Additional history exists DTaP,Tdap,and Td Vaccines (2 - Td or Tdap) 02/02/2028 02/01/2018, 04/17/2006 Hepatitis A Vaccines Completed 05/21/2008, 04/17/20 06 Pneumococcal vaccine (65+ years) Completed 02/02/20 18, 05/21/2008 Colonoscopy Discontinued 08/27/2018, 08/29/2013 CT Colonography Discontinued Cologuard Discontinued Colorectal Cancer Surveillance Discontinued Goals Goal Patient Goal Type Associated Problems Recent Progress Patient-Stated? Author Weight (lb) > X Weight No Elaine Ball R.N. Note: Patient states he would like to lose 20 lbs. He does go to gym 3 x week for 60 minutes. Medical Devices Implanted Type Area Statement Clerk Device Identifier Shelf Expiration Date Model / Serial / Lot Ocular Lens-03/27/2007 Implanted:03/17 (Quantity not on file) Ocular Lens Eye Aspheric Uv Absorbing Iol Implanted:Qty: 1 on 08/29/2017 by Daniel Soler M.D., Ph.D. at [facility] Ocular Lens [employer] [id number] 03/16/2022 [id number] / [id number] / [id number] Procedures Procedure Name Priority Date/Time Associated Diagnosis Comments CYTOLOGY NON-OBSTETRICS NURSE PRACTITIONER Routine 03/01/2024 11:4 1 AM CDT CELL [...] 41 AM CDT COLONOSCOPY 08/27/2018 7:28 AM CONVEYOR LOADER from Last 3 Months or Most Recently Relevant to Health Maintenance Results * Cytology Non-OBSTETRICS NURSE PRACTITIONER (03/01/2024 11:41 AM CDT) 03/06/2024 11:22 AM [...] Kristyn Bailey D.P.M. LAB SURG PATH ORDERABLES [facility] [address] [place] [address], [facility] ECLR [address] [place] [phone] * Cell Count and Differential, Body Fluid (03/01/2024 11:41 AM CDT) Fluid Type Synovial 03/01/2024 7:47 PM CDT [facility] Gross Appearance CloudySerous 03/01/2024 7:47 PM CDT [facility] Total Nucleated Cells 1827 /mcL 03/02/2024 5:27 AM CDT [facility] Comment: REVISED RESULTS ----REFERENCE VALUE---- Synovial: <150 Peritoneal: <500 Pleural: <500 Pericardial: <500 ----PREVIOUSLY REPORTED ---- 1722, Flagged as: N/A (Reported 03/01/2024 19:47) Neutrophils 1 % 03/01/2024 10:22 PM CDT [facility] Comment: ----REFERENCE VALUE---- Synovial: <25% Peritoneal: <25% Pleural: <25% Pericardial: <25% Lymphocytes 5 Synovial: <75% % 03/01/2024 10:22 PM CDT [facility] Monocytes/Macro phages 92 Synovial: <70% % 03/01/2024 10:22 PM CDT [facility] Other Cells 2 % 03/01/2024 10:22 PM CDT [facility] Reviewed by [id number] 03/01/2024 10:27 PM CDT [facility] Fluid (Synovial Fluid, Not Otherwise Specified) 03/01/2024 11:41 AM CDT 03/01/2024 6:59 PM CDT Kristyn Bailey D.P.M. LAB BODY FLUID S AND STOOLS ORDERABLES [facility] [address] [place] [address], [facility] in [place] [address] [place] [address], [place] [phone] * DX Foot Left 3+ Views (03/01/2024 [...] metatarsophalangeal joint.Plantar calcaneal enthesophyte. Kristyn Bailey D.P.M. [facility]ED[facility] * Lipid Panel (05/11/2022 9:28 AM CDT) Pathologist [facility] Triglycerides 95 mg/dL 05/11/2022 11:19 AM CDT [...] 9:28 AM CDT 05/11/2022 10:17 AM CDT Cecilia Echeverria APRNNVidal., D.N.P. LAB BL OOD ADD-ON [facility] [address] [place] [address], [facility] AUST [facility] [address] [place] [address] * Basic Metabolic Panel (05/11/2022 9:28 AM [...] APRN, C.N.P., D.N.P. LAB BL OOD ADD-ON [facility] [address] [place] [address], [place] AUST [facility] [address] [place] [address] * UPPER GI ENDOSCOPY (04/06/2021 7:41 AM CDT) Narrative Procedure Note Tru Nieto M.D. - 04/06/2021 7:41 AM CDT [facility] Patient Name: Elver Novak Procedure Date: [...] CEDURE ORDERABLES * COLONOSCOPY (08/27/2018 7:28 AM CONVEYOR LOADER) Narrative Procedure Note Darryl Tesfaye M.D. - 08/27/2018 7:28 AM CST [facility] Patient Name: Elver Novak Procedure Date: 08/27/2018 [...] Advance Directives For more information, please contact: [phone] * Full Code (Latest Code Status on File) Date Activated Date Inactivated Comments 04/06/2021 8:17 AM 04/06/2021 11:24 AM Question Answer Comments Full Code: Discussed * Full Code Date Activated Date Inactivated Comments 08/29/2017 6:13 AM 08/29/2017 10:58 AM Question Answer Comments Full Code: Discussed Care Teams Information Technology Internship Relationship Specialty Start Date End Date Celsa Mitchell D.O., M.S. [address] [place] [phone] PCP - General 05/23/22
--- OUTSIDE RECORDS SUMMARY | 2024-04-02 12:28 | XMS_ITS | Clinical Summary ---
Author Organization [facility] Address [place], [place] [address] Care Team Providers Care Junior Account Manager Name Role Phone Pcp, No Primary Care Provider Unavailabl e Allergies No known active allergies Medications Medication Sig Dispensed Refills Start Date End Date Status aspirin chewable 81 mg chewable tablet Chew 81 mg by mouth. Active atenoloL (TENORMIN) 25 mg tablet Take 25 mg by mouth once daily. 06/29/2022 Active atorvastatin (LIPITOR) 40 mg tablet Take 40 mg by mouth once daily. 06/29/2022 Active lisinopriL (PRINIVIL; ZESTRIL) 10 mg tablet Take 10 mg by mouth once daily. 06/29/2022 Active omeprazole (PRILOSEC) 20 mg Delayed-Release capsule Take 20 mg by mouth. 09/09/2022 Active tamsulosin (FLOMAX) 0.4 mg capsule TAKE 1 CAPSULE (0.4 MG) BY MOUTH DAILY. 09/09/2022 Active valACYclovir (VALTREX) 1 gram tablet Take 1 g by mouth three times daily. 09/09/2022 Active VITAMINS A,C,Y-RUMJ-WHJHGS (PRESERVISION AREDS) 2,148 mcg-113 mg-45 mg-17.4mg tablet Take 1 Tablet by mouth once daily. Active trifluridine 1% (VIROPTIC) ophthalmic solutionIndications:He rpes zoster with ophthalmic complication, unspecified herpes zoster eye disease One drop five times daily while awake for seven days. 7.5 mL 09/10/2022 Active Active Problems No known active problems Social History Tobacco Use Types Packs/Day Years Used Date Smoking Tobacco: Never Smokeless Tobacco: Never Tobacco Cessation:Counseling Given: Not Answered Sex and Gender Information Value Date Recorded Sex Assigned at Not on file Gender Identity Not on file Sexual Orientation Not on file Obstetrics History Last Filed Vital Signs Vital Sign Reading Time Taken Comments Blood Pressure 124/97 09/10/2022 3:29 PM PIE BAKER Pulse 71 09/10/2022 3:29 PM PIE BAKER Temperature 36.7 ??C (98 ??F) 09/10/2022 3:29 PM PIE BAKER Respiratory Rate 18 09/10/2022 3:29 PM PIE BAKER Oxygen Saturation 97% 09/10/2022 3:29 PM PIE BAKER Inhaled Oxygen Concentration - - Weight 83.5 kg (184 lb) 09/10/2022 3:29 PM PIE BAKER Height - - Body Mass Index - - Plan of Treatment Health Maintenance Due Date Last Done Comments Tdap 1950 Depression screening for age 12+ 1951 BMI (ht and wt on same day) for age 18+ 1957 Tetanus booster 1959 Zoster (shingles) series for age 50+ (1 of 2) 1989 RSV vaccine for adults or (1 - 1-dose 60+ series) 1999 Medicare Wellness for age 65+ 2004 Pneumococcal series for age 65+ (1 of 1 - PCV) 2004 COVID-19 vaccine series ( season) 2024 02/08/2022, 05/17/2021, 10/08/2020, Additional history exists Influenza for age 65+ 03/17/2024 Care Teams Junior Account Manager Relationship Specialty Start Date End Date Pcp, No . PCP - General 06/07/22
--- OUTSIDE RECORDS SUMMARY | 2024-04-02 12:28 | XMS_ITS | Encounter Summary ---
Author Organization [facility] Address [address] [place] [address] Care Team Providers Care Dental Biller Name Role Phone Celsa Mitchell D.O. M.S. Primary Care Provide r Reason for Referral * Outpatient (Routine) - Authorized Specialty Diagnoses / Procedures Referred By Brenden rutledge Referred To Contact Orthopedic Surgery Diagnoses Onychomycosis Pain Toe Right Pain Toe Left Kristyn Bailey D.P.M. [address] [phone] [facility] Region Referral ID Status Reason Start Date Expiration Date V isits Requested Visits Authorized [id number] Authorized 04/01/2024 10/01/2025 1 1 Reason for Visit * Reason Comments Nail Problem F/u mass footNail ca re Follow-up F/u mass footNail ca re Nail Problem * Outpatient (Routine) - Closed Specialty Diagnoses / Procedures Referred By Brenden rutledge Referred To Contact Orthopedic Surgery Diagnoses Onychomycosis Pain Toe Right Pain Toe Left Kristyn Bailey D.P.M. [address] [phone] [facility] Region Referral ID Status Reason Start Date Expiration Date Visits Re quested Visits Authorized [id number] Closed 12/18/2023 06/18/2025 1 1 Encounter Details Date Type Department Care Team (Late st Contact Info) Description 04/01/2024 9:15 AM CDT Office Visit Department of Orthopedic Surgery in [address] [place] [phone] Kristyn Bailey D.P.M. [address] [place] [phone] Onychomycosis; Pain Toe Right; Pain Toe Left [...] relatives? Three times a week 03/10/2020 Attends [employer] Not on file 03/10 Active Member [...] Answer Date Recorded PHQ-2 Score 0 05/12/[address] [facility] of Occupat ional Health - Occupational Stress [...] Master's degree (e.g., MA, MS, Bianca, MEd, COATER OPERATOR INSULATION BOARD, STEFANI) 01/28/2019 Sex and Gender Information Value Date Recorded Sex Assigned at Male 09/05/2017 10:23 AM NEWSPAPER PHOTOGRAPHER Gender Identity Male 09/05/2017 10:23 AM NEWSPAPER PHOTOGRAPHER Sexual Orientation Straight 09/05/2017 10 :23 AM NEWSPAPER PHOTOGRAPHER documented as of this encounter Progress Notes * Kristyn Bailey D.P.MFreddy - 04/01/2024 9:15 AM CDT SUBJECTIVE CHIEF COMPLAINT/REASON FOR VISIT Chief Complaint Patient presents with Left Foot - Nail Problem, Follow-up F/u mass foot Nail care Right Foot - Nail Problem HISTORY OF PRESENT ILLNESS Elver Novak is a 83 y.o. male seen for necessary foot care and complaint of painful thickened nails bilaterally. Patient states he is experiencing no pain on the left plantar midfoot mass area that was previously aspirated. OBJECTIVE PHYSICAL EXAMINATION DP and PT pulses nonpalpable bilaterally. Skin is thin, shiny, frail, xerotic, ruborous, cold, and atrophic bilaterally with absent digital hair growth. Nails are elongated, thick,dystrophic, incurvated, and painful times 10 with lysis, crumbling, and subungual debris. Patient has no pain to palpation overlying the left plantar midfoot mass that resembles lipoma versus ganglion. No signs of secondary infection. Does not limit his ability to participate in exercise to the degree he desires. ASSESSMENT / PLAN #1 Onychomycosis #2 Pain Toe Right #3 Pain Toe Left PLAN Nails debrided x 10. Patient to follow up in 13 weeks for necessary foot care, sooner if questions or problems. We discussed continuing to monitor the mass on the left foot, with the knowledge that if it becomes bothersome, enlarged, etc. then we may need to proceed with surgical excision. At this time he is in agreement and will follow up again with this p.r.n.. documented in this encounter Plan of Treatment Upcoming Encounters Date Type Department Care Team (Late st Contact Info) Description 07/01/2024 11:15 AM NEWSPAPER PHOTOGRAPHER Office Visit Department of Orthopedic Surgery in [address] [place] [phone] Kristyn Bailey D.P.MFreddy [address] [place] [phone] Discharge Disposition: Home or Self Care Scheduled Referrals Name Type Priority Associated Diagnoses Order Schedule Orthopedic Surgery office visit (clinic) Outpatient Referral Routine Onychomycosis Pain Toe Right Pain Toe Left Expected: 07/01/2024, Expires: 07/01/2025 documented as of this encounter Goals Goal Patient Goal Type Associated Problems Recent Progress Patient-Stated? Author Weight (lb) > X Weight No Elaine Ball, R.N. Note: Patient states he would like to lose 20 lbs. He does go to gym 3 x week for 60 minutes. documented as of this encounter Visit Diagnoses Diagnosis Onychomycosis Pain Toe Right Pain Toe Left documented in this encounter Additional Health Concerns Assessment Noted Time PHQ-9 Depression Total Score: 0 03/25/20 21 12:59 PM CDT documented as of this encounter Care Teams Dental Biller Relationship Specialty Start Date End Date Celsa Mitchell D.O., M.S. [address] [place] [phone] PCP - General 05/23/22 documented as of this encounter
--- OUTSIDE RECORDS SUMMARY | 2024-04-02 12:28 | XMS_ITS | Encounter Summary ---
Author Organization [facility] Address [address] [place] [address] Care Team Providers Care Project Manager Name Role Phone Celsa Mitchell D.O. M.S. Primary Care Provide r Reason for Visit * Reason Comments Pain Bulge on arch of nay t, pain with exertion * Outpatient (Routine) - Closed Specialty Diagnoses / Procedures Referred By Brenden rutledge Referred To Contact Orthopedic Surgery Boris Bailey D.P.M. [address] [phone] [facility] Region Referral ID Status Reason Start Date Expiration Date Visits Re quested Visits Authorized [id number] Closed 02/12/2024 08/13/2025 1 1 Encounter Details Date Type Department Care Team (Late st Contact Info) Description 03/01/2024 11:15 AM CDT Office Visit Department of Orthopedic Surgery in [address] [phone] Boris Bailey D.P.M. [phone] [phone] Mass Soft Tissue (Primary Dx); Cyst Ganglion; [...] Answer Date Recorded PHQ-2 Score 0 05/12/2022 [facility] of Occupat ional Health - Occupational Stress [...] Master's degree (e.g., MA, MS, Bianca, MEd, GYPSUM CALCINER, STEFANI) 01/28/2019 Sex and Gender Information Value Date Recorded Sex Assigned at Male 09/05/2017 10:23 AM CHANNEL DIRECTOR Gender Identity Male 09/05/2017 10:23 AM CHANNEL DIRECTOR Sexual Orientation Straight 09/05/2017 10 :23 AM CHANNEL DIRECTOR documented as of this encounter Progress Notes * Boris Bailey D.P.M. - 03/01/2024 11:15 AM CDT SUBJECTIVE CHIEF COMPLAINT / REASON FOR VISIT Chief Complaint Patient presents with Left Foot - Pain Bulge on arch of foot, pain with exertion HISTORY OF PRESENT ILLNESS Elver Novak is a 83 y.o. male who presents for evaluation of painful mass on the plantar medial aspect of his left arch. Patient states this has developed an worsened since his last visit with me 2 months ago. He does not necessarily have pain to palpation but does have pain with weight-bearing. He tries to remain active and walks daily. The following portions were reviewed and updated as appropriate: Allergies, medications, medical history, surgical history, family history, social history. and problem list per the electronic health record tab dated 03/01/2024. REVIEW OF SYSTEMS: Hepatic - negative, Constitutional - negative, Integumentary - negative, GI - negative, Musculoskeletal - see HPI OBJECTIVE PHYSICAL EXAMINATION Left plantar medial midfoot demonstrates a soft tissue mass that measures approximately 3 x 2 cm atwidest dimension. It does not seem to be related to a ganglion but more likely a lipoma. It is slightly erythematous overlying it but not demonstrating any signs of infection. There is no overlying hyperkeratosis. DIAGNOSTICS LABORATORY / RADIOLOGY: X-ray taken today demonstrates some medial arch collapse but no underlying bony abnormality. ASSESSMENT / PLAN #1 Cyst Ganglion #2 Pain Foot Left #3 Mass Soft Tissue PLAN Reviewed radiographic findings with the patient. Recommended cortisone injection as well as aspiration. Patient in agreement. 2 cc of fluid was aspirated resembling lipomatous tissue. This was sent for cell count as well as surgical pathology. Patient was given a silicone sleeve to wear over the area to help protect it with weight-bearing. He does have a follow-up appointment in 1 month at which time we can recheck the status and determine if there is further intervention that is necessary or warranted. In addition laboratory work should be returned by that for further input into the next steps. Patient understanding and happy with this plan. documented in this encounter Miscellaneous Notes * Addendum Note - Boris Bailey D.P.M. - 03/01/2024 11:15 AM CDTAddended by: BORIS BAILEY on: 03/04/2024 11:54 AM Modules accepted: Orders documented in this encounter Plan of Treatment Upcoming Encounters Date Type Department Care Team (Late st Contact Info) Description 07/01/2024 11:15 AM CHANNEL DIRECTOR Office Visit Department of Orthopedic Surgery in [address] [phone] Boris Bailey D.PMaren [address] [place] [phone] Discharge Disposition: Home or Self Care documented [...] Name Priority Date/Time Associated Diagnosis Comments CYTOLOGY NON-PHARMACEUTICAL DETAILER Routine 03/01/2024 11:4 1 AM CDT CELL COUNT AND DIFFERENTIAL, BF Routine 03/01/2024 11:41 AM CDT Cyst Ganglion documented in this encounter Results * Cytology Non-PHARMACEUTICAL DETAILER (03/01/2024 11:41 AM CDT) 03/06/2024 11:22 AM [...] 1 AM CDT 03/05/2024 12:50 PM CDT Boris Bailey D.P.M. LAB SURG PATH ORDERABLES [facility] [address] [place] [id number], [facility] ECLR [address] [place] [phone] * Cell Count and Differential, Body Fluid (03/01/2024 11:41 AM CDT) Fluid Type Synovial 03/01/2024 7:47 PM CDT [facility] Gross Appearance CloudySerous 03/01/2024 7:47 PM CDT [facility] Total Nucleated Cells 1827 /mcL 03/02/2024 5:27 AM CDT [facility] Comment: REVISED RESULTS ----REFERENCE VALUE---- Synovial: <150 Peritoneal: <500 Pleural: <500 Pericardial: <500 ----PREVIOUSLY REPORTED ---- 1721, Flagged as: N/A (Reported 03/01/2024 19:47) Neutrophils 1 % 03/01/2024 10:22 PM CDT [facility] Comment: ----REFERENCE VALUE---- Synovial: <25% Peritoneal: <25% Pleural: <25% Pericardial: <25% Lymphocytes 5 Synovial: <75% % 03/01/2024 10:22 PM CDT [facility] Monocytes/Macro phages 92 Synovial: <70% % 03/01/2024 10:22 PM CDT [facility] Other Cells 2 % 03/01/2024 10:22 PM CDT [facility] Reviewed by [id number] 03/01/2024 10:27 PM CDT [facility] Fluid (Synovial Fluid, Not Otherwise Specified) 03/01/2024 11:41 AM CDT 03/01/2024 6:59 PM CDT Boris Bailey D.P.M. LAB BODY FLUID S AND STOOLS ORDERABLES [facility] [address] [place] [address], [facility] [place] [address] [place] [phone] documented in this encounter Visit Diagnoses Diagnosis Mass Soft Tissue- Primary Cyst Ganglion Pain Foot Left documented in this encounter Additional Health Concerns Assessment Noted Time PHQ-9 Depression Total Score: 0 03/25/20 21 12:59 PM CDT documented as of this encounter Care Teams Project Manager Relationship Specialty Start Date End Date Celsa Mitchell D.O., M.S. [address] [phone] PCP - General 05/23/22 documented as of this encounter
--- OUTSIDE RECORDS SUMMARY | 2024-04-02 12:29 | XMS_ITS | Encounter Summary ---
Author Organization [facility] Address [address] [place] [address] Care Team Providers Care Senior Architect/Design Manager Name Role Phone Celsa Mitchell D.O. M.S. Primary Care Provide r Reason for Referral * Outpatient (Routine) - Closed Specialty Diagnoses / Procedures Referred By Contac t Referred To Contact Diagnoses Pain Foot Left Procedures DX Foot Left 3+ Views Kristyn Bailey D.PFreddyMFreddy [address] [place] [phone] [facility] Region Referral ID Status Reason Start Date Expiration Date Visits Re quested Visits Authorized [id number] Closed 02/12/2024 02/11/2025 1 1 * Outpatient (Routine) - Closed Specialty Diagnoses / Procedures Referred By Contac t Referred To Contact Orthopedic Surgery Kristyn Bailey D.PFreddyMFreddy [address] [phone] [facility] Region Referral ID Status Reason Start Date Expiration Date Visits Re quested Visits Authorized [id number] Closed 02/12/2024 08/13/2025 1 1 Encounter Details Date Type Department Care Team (Late st Contact Info) Description 02/12/2024 Clinical Communication Department of Orthopedic Surgery in [address] [place] [phone] Kristyn Bailey D.PFreddyMFreddy [address] [place] [phone] Social History Tobacco Use Types Packs/Day Years [...] relatives? Three times a week 03/10/2020 Attends [employer] Services Not on file 03/10 Active Member [...] Date Recorded PHQ-2 Score 0 05/12/2022 [facility] of Occupat ional Health - Occupational Stress [...] Master's degree (e.g., MA, MS, Bianca, MEd, POOL COORDINATOR, STEFANI) 01/28/2019 Sex and Gender Information Value Date Recorded Sex Assigned at Male 09/05/2017 10:23 AM BINDING BENCH WORKER Gender Identity Male 09/05/2017 10:23 AM BINDING BENCH WORKER Sexual Orientation Straight 09/05/2017 10 :23 AM BINDING BENCH WORKER documented as of this encounter Plan of Treatment Upcoming Encounters Date Type Department Care Team (Late st Contact Info) Description 07/01/2024 11:15 AM BINDING BENCH WORKER Office Visit Department of Orthopedic Surgery in [address] [phone] Kristyn Bailey D.PFreddyMFreddy [address] [place] [phone] Discharge Disposition: Home or Self Care Scheduled Referrals Name Type Priority Associated Diagnoses Order Schedule Orthopedic Surgery office visit (clinic) Outpatient Referral Routine Expected: 03/01/2024, Expires: 05/14/2025 documented as of this encounter Goals Goal Patient Goal Type Associated Problems Recent Progress Patient-Stated? Author Weight (lb) > X Weight No Elaine Ball, R.N. Note: Patient states he would like to lose 20 lbs. He does go to gym 3 x week for 60 minutes. documented as of this encounter Results * DX Foot Left [...] this encounter Visit Diagnoses Diagnosis Pain Foot Left- Primary Pain Foot Left documented in this encounter Additional Health Concerns Assessment Noted Time PHQ-9 Depression Total Score: 0 03/25/20 21 12:59 PM CDT documented as of this encounter Care Teams Senior Architect/Design Manager Relationship Specialty Start Date End Date Celsa Mitchell D.O., M.S. [address] [phone] PCP - General 05/23/22 documented as of this encounter
--- OUTSIDE RECORDS SUMMARY | 2024-04-02 12:29 | XMS_ITS | Encounter Summary ---
Author Organization [facility] Address [address] [place] [address] Care Team Providers Care Gyroscopic Instrument Mechanic Name Role Phone Celsa Mitchell D.O., M.S. Primary Care Provide r Encounter Details Date Type Department Care Team (Late st Contact Info) Description 01/23/2024 Orders Only [facility] Celsa Mitchell D.O., M.S. [address] [place] [phone] Hyperlipidemia; Screening Examination Diabetes Mellitus Social History Tobacco Use Types Packs/Day Years [...] relatives? Three times a week 03/10/2020 Attends [employer] Not on file 03/10 Active Member [...] Answer Date Recorded PHQ-2 Score 0 05/12/2022 [facility] of Occupat ional Health - Occupational Stress [...] Master's degree (e.g., MA, MS, Bianca, MEd, RENAL MEDICINE PHYSICIAN, STEFANI) 01/28/2019 Sex and Gender Information Value Date Recorded Sex Assigned at Male 09/05/2017 10:23 AM MANAGER STRATEGY Gender Identity Male 09/05/2017 10:23 AM MANAGER STRATEGY Sexual Orientation Straight 09/05/2017 10 :23 AM MANAGER STRATEGY documented as of this encounter Plan of Treatment Upcoming Encounters Date Type Department Care Team (Late st Contact Info) Description 07/01/2024 11:15 AM MANAGER STRATEGY Office Visit Department of Orthopedic Surgery in [address] [place] [phone] Kristyn Bailey, D.P.M. [address] [place] [phone] Discharge Disposition: Home or Self Care Scheduled Orders Name Type Priority Associated Diagnoses Orde r Schedule Lipid Panel Lab Routine Hyperlipidemia Expected: 02/06/2024, Expires: 07/21/2024 Glucose, Fasting Lab Routine Screening Examination Diabetes Mellitus Expected: 02/06/2024, Expires: 07/21/2024 documented as of this encounter Goals Goal Patient Goal Type Associated Problems Recent Progress Patient-Stated? Author Weight (lb) > X Weight No Elaine Ball R.N. Note: Patient states he would like to lose 20 lbs. He does go to gym 3 x week for 60 minutes. documented as of this encounter Visit Diagnoses Diagnosis Hyperlipidemia Screening Examination Diabetes Mellitus documented in this encounter Additional Health Concerns Assessment Noted Time PHQ-9 Depression Total Score: 0 03/25/20 21 12:59 PM CDT documented as of this encounter Care Teams Gyroscopic Instrument Mechanic Relationship Specialty Start Date End Date Celsa Mitchell D.O., M.S. [address] [phone] PCP - General 05/23/22 documented as of this encounter
== END 2024-04-02 12:24 | disposition home or self-care (01) ==
PROVIDERS: PCP Family Medicine; Visit Provider Family Medicine
DX: E78.5 Hyperlipidemia, unspecified (principal); I10 Essential (primary) hypertension
CPT/HCPCS: 80048; 80061; 84460

== ENCOUNTER 2025-04-07 08:49 | Outpatient (CLI) | payer MEDICARE, BC, SELFPAY | END 2025-04-07 08:50 | disposition home or self-care (01) | PROVIDERS: PCP Family Medicine; Visit Provider Family Medicine | DX: E78.2 Mixed hyperlipidemia (principal); I10 Essential (primary) hypertension | CPT/HCPCS: 80048; 80061; 84460 ==